=== PATIENT | male | born 1955 | race Two or more races ===

== ENCOUNTER 2021-09-08 07:42 | Outpatient (CLI) | payer OTHER ==
[~2021-09-08 07:42] MED LIST: ASA81 MG PO; COZAAR50 MG PO
== END 2021-09-08 07:43 | disposition home or self-care (01) ==
LOC: NUCLEAR 07:42
PROVIDERS: ATTEND Internal Medicine Cardiovascular Disease
DX: I73.9 Peripheral vascular disease, unspecified (principal)

== ENCOUNTER 2022-02-03 07:22 | Outpatient (CLI) | payer OTHER | END 2022-02-03 07:23 | disposition home or self-care (01) | LOC: NUCLEAR 07:22 | PROVIDERS: ATTEND Internal Medicine Cardiovascular Disease | DX: I25.110 Atherosclerotic heart disease of native coronary artery with unstable angina pectoris (principal) | CPT/HCPCS: 78452; A9500 ==